=== PATIENT | female | born 1990 | race Caucasian/White ===

== ENCOUNTER 2021-06-03 10:03 | Emergency (ER) | payer OTHER, SELFPAY ==
--- NOTE | 2021-06-03 10:12 | ED.URI ---
HPI - URI/Sore Throat General Chief Complaint: Upper Respiratory Infection Stated Complaint: Bilateral Ear Pain,Sore Throat Time Seen by Provider: 06/03/21 10:12 Source: patient and RN notes reviewed Mode of arrival: ambulatory Limitations: no limitations History of Present Illness HPI Narrative: Ms. Muniz is a 30-year-old female patient here today with complaint of ear pain and sinus pressure started last Thursday. Patient states she had a PCR at [facility] last Thursday which was negative. Patient has used Benadryl and Tylenol Sinus at home with minimal relief. Patient states she has a history of ear infections and sinus issues. Patient denies taking any daily allergy medicine. MD elicited complaint: other (bilateral ear pain) Related Data Allergies Allergy/AdvReac Type Severity Reaction Status Date / Time No Known Allergies Allergy Verified 06/03/21 10:28 Review of Systems Review of Systems: CONSTITUTIONAL: Denies body aches, fever, chills, or sweats. EYES: Denies visual changes, redness, or discharge. ENT: + rhinorrhea, congestion, sore throat, or otalgia. CARDIOVASCULAR: Denies chest pain, palpitations, or edema. RESPIRATORY: + cough , denies dyspnea. GASTROINTESTINAL: Denies abdominal pain, nausea, vomiting, or diarrhea. GENITOURINARY: Denies dysuria or hematuria. SKIN: Denies rash, itching, or wounds. MUSCULOSKELETAL: Denies back pain, joint pain, or myalgia. NEUROLOGIC: Denies headache, numbness, tingling, or weakness. PSYCH: Denies depression or anxiety. PMFSH Comments At time of signature, I have reviewed and agree with nursing past medical, surgical, social and family history unless otherwise noted. Please see nursing chart for further information. There is no relevant family history pertinent to the presenting complaint Exam Narrative: GENERAL: Well-appearing, well-nourished, and in no acute distress. HEAD: Normocephalic, atraumatic. EYES: EOMI. No redness or drainage. Conjunctivae normal. ENT: Mucous membranes pink and moist. Nares , clear rhinorrhea, Right TM dull, fluid filled, bulging. Left TM erythemic, bulging,. Throat: clear post-nasal drainage. Uvula midline; maxillary sinus tenderness with palpation. NECK: Normal AROM. Supple. Left anterior cervical lymphadenopathy. CHEST: No respiratory distress. Clear to auscultation. MUSCULOSKELETAL: No bony tenderness. EXTREMITIES: Normal range of motion. No edema. SKIN: Warm, dry, no rash. Capillary refill normal. Normal skin turgor. NEURO: No focal deficits. Alert and oriented x3. Gait steady. PSYCH: Normal affect. No signs of depression or anxiety. Course Vital Signs Vital signs: Vital Signs Temperature 36.8 C 06/03/21 10:18 Pulse Rate 90 06/03/21 10:18 Respiratory Rate 18 06/03/21 10:18 Blood Pressure 125/86 06/03/21 10:18 Pulse Oximetry 100 06/03/21 10:18 Temperature 36.8 C 06/03/21 10:18 Pulse Rate 90 06/03/21 10:18 Respiratory Rate 18 06/03/21 10:18 Blood Pressure 125/86 06/03/21 10:18 Pulse Oximetry 100 06/03/21 10:18 Reviewed MDM - URI/Sore Throat MDM Narrative Medical decision making narrative: Left tympanic membrane erythematous bulging. Clear postnasal drainage noted. Minimal erythema to throat. Differential Diagnosis Differential diagnosis: Likely upper respiratory infection, otitis media, sinusitis and pharyngitis Medical Records Attestation: I reviewed the patient's medical records. Critical Care Time Critical Care Time Critical Care Time: No Discharge Plan Discharge Clinical Impression: Otitis media Qualifiers: Otitis media type: unspecified Chronicity: acute Qualified Code(s): H66.90 - Otitis media, unspecified, unspecified ear Upper respiratory infection Qualifiers: URI type: unspecified viral URI Qualified Code(s): J06.9 - Acute upper respiratory infection, unspecified Patient Disposition: Home, Self-Care Condition: Stable Instructions: Antibiotic Form
[2021-06-03 10:18] VITALS: BP 125/86; PULSE 90; RESP 18; TEMP 36.8; O2SAT 100
== END 2021-06-03 10:38 | disposition home or self-care (01) ==
PROVIDERS: Emergency Provider Nurse Practitioner Family; PCP Registered Nurse
DX: H66.90 Otitis media, unspecified, unspecified ear (principal); J06.9 Acute upper respiratory infection, unspecified
CPT/HCPCS: 99213; G0463

== ENCOUNTER → 2022-04-19 08:44 | Outpatient (CLI) | payer OTHER, SELFPAY ==
--- NOTE | ~2022-04-19 | MR_ITS ---
EXAMINATION: MR foot LT wo con DATE: 04/19/2022 09:46 INDICATION: One month of pain at the left forefoot. TECHNIQUE: Magnetic resonance imaging (MRI) of the left fore/mid foot was performed without intraveno us contrast. Sequences included sagittal T1-weighted FSE, sagittal fluid sensitive FSE STIR, coronal PD-weighted FS FSE, coronal T1-weighted FSE, axial PD-weighted FS FSE, and axial PD-weighted FSE. COMPARISON: None FINDINGS: Bone alignment is normal. There is prominent marrow edema of the third metatarsal centered at the pro ximal metadiaphyseal region. There is mild periostitis along the medial side of the diaphyseal cortex where there is subtle increased intracortical signal but without a discrete fracture line. Findings would be consistent with a grade 4a stress injury. There was normal marrow signal. No pathologic tee ow replacing process. Mild osteoarthritis with mild partial-thickness cartilage loss at the first met atarsophalangeal and second tarsal metatarsal joints. No joint effusions or other abnormal fluid janet ections. The flexor and extensor tendons are normal. The Lisfranc ligament complex as well as the col lateral ligament complex at the metatarsophalangeal and interphalangeal joints are normal. There is f eathery muscular edema involving the flexor digitorum brevis muscle at the level of the midfoot witho ut discrete tear defect consistent with a low-grade strain. IMPRESSION: 1. Grade for a stress injury without complete fracture at the proximal metadiaphyseal region of the l eft third metatarsal. 2. Low-grade strain of the flexor digitorum brevis muscle. Reviewed, dictated and finalized at location A. IMPRESSION: 1. Grade for a stress injury without complete fracture at the proximal metadiap hyseal region of the left third metatarsal. 2. Low-grade strain of the flexor digitorum brevis muscle.
== END ==
PROVIDERS: PCP Registered Nurse; Visit Provider Podiatrist Foot & Ankle Surgery
DX: S96.812A Strain of other specified muscles and tendons at ankle and foot level, left foot, initial encounter (principal); X58.XXXA Exposure to other specified factors, initial encounter
CPT/HCPCS: 73718

== ENCOUNTER 2022-07-01 12:01 | Emergency (ER) | payer OTHER, SELFPAY ==
[2022-07-01 12:14] VITALS: BP 118/82; PULSE 90; RESP 16; TEMP 36.6; O2SAT 99
--- NOTE | 2022-07-01 12:20 | ED.EAR ---
HPI - Ear Problem General Chief complaint: Ear Stated complaint: bilateral ear pain Source: patient Mode of arrival: ambulatory Limitations: no limitations History of Present Illness HPI Narrative: This is a 31 year old female that was just treated for a ear infection less than a month ago come back in complaining of ear pain in both of her ears and some pain in her Throat. Patient states that she is taking Claritin alternating Zyrtec as well and her ears continue to hurt. Patient states her ear has been hurting for the last week Related Data Allergies Allergy/AdvReac Type Severity Reaction Status Date / Time No Known Allergies Allergy Verified 07/01/22 12:23 Review of Systems Review of Systems: ear pain All systems reviewed & are unremarkable except as noted in HPI and below PMFSH Comments At time as signature, I have reviewed and agree with nursing past medical, social, surgical and family history. Please see nursing chart for further information. There is no relevant family history pertinent to the presenting complaint. Exam Narrative: GENERAL:Well-appearing, well-nourished, and in no acute distress. HEAD:Normocephalic, atraumatic. EYES: PERRLA and EOMI. ENT: Nares clear, mild rhinorrhea Mucous membranes moist.right has bulging tm with fluid noted left has erythema noted CHEST: No respiratory distress. HEART: Regular rate and rhythm Normal peripheral pulses. EXTREMITIES: Normal range of motion. No edema. SKIN: Warm, dry, no rash. NEURO: No focal deficits. Alert and oriented x3. Course Course Level of Care: Express Care Visit Vital Signs Vital signs: Vital Signs Temperature 97.8 F 07/01/22 12:14 Pulse Rate 90 07/01/22 12:14 Respiratory Rate 16 07/01/22 12:14 Blood Pressure 118/82 07/01/22 12:14 Pulse Oximetry 99 07/01/22 12:14 Oxygen Delivery Room Air 07/01/22 12:14 Temperature 97.8 F 07/01/22 12:14 Pulse Rate 90 07/01/22 12:14 Respiratory Rate 16 07/01/22 12:14 Blood Pressure 118/82 07/01/22 12:14 Pulse Oximetry 99 07/01/22 12:14 Oxygen Delivery Room Air 07/01/22 12:14 Medical Decision Making Vital Signs Vital Signs: Vital Signs Temperature 97.8 F 07/01/22 12:14 Pulse Rate 90 07/01/22 12:14 Respiratory Rate 16 07/01/22 12:14 Blood Pressure 118/82 07/01/22 12:14 Pulse Oximetry 99 07/01/22 12:14 Oxygen Delivery Room Air 07/01/22 12:14 Temperature 97.8 F 07/01/22 12:14 Pulse Rate 90 07/01/22 12:14 Respiratory Rate 16 07/01/22 12:14 Blood Pressure 118/82 07/01/22 12:14 Pulse Oximetry 99 07/01/22 12:14 Oxygen Delivery Room Air 07/01/22 12:14 Discharge Plan Discharge Clinical Impression: Otitis media Patient Disposition: Home, Self-Care Condition: Stable Instructions: Antibiotic Form, Ear Infection (ED) Additional Instructions: Please make sure you take all of your medication Make sure you are not getting in water in your ears. Please make sure you are taking antihistamine You need to follow up with your PCP Prescriptions: New azithromycin [Zithromax Z-Aron] 250 mg tablet See Rx Instructions .ROUTE .COMPLEX Qty: 6 0RF Rx Instructions: For 250 mg dose pack: take 500 mg today (day 1), then 250 mg for 4 days (days 2-5) Follow-up/Referrals: [facility] [Primary Care Provider] - Time of Disposition: 12:34
== END 2022-07-01 12:42 | disposition home or self-care (01) ==
PROVIDERS: Emergency Provider Nurse Practitioner Family; PCP Registered Nurse
DX: H66.91 Otitis media, unspecified, right ear (principal)
CPT/HCPCS: 99213; G0463

== ENCOUNTER 2024-08-01 14:42 | Outpatient (CLI) | payer OTHER, SELFPAY ==
--- NOTE | ~2024-08-01 | XR_ITS ---
EXAMINATION: XR chest 2V Exam Date/Time: 08/01/2024 14:59 CHAR FILTER OPERATOR HELPER HISTORY: Melanoma of back Comparison: None. RESULT: Lines, tubes, and devices: None. Lungs and pleura: Clear. Cardiomediastinal silhouette: Normal. Other: No acute osseous or upper abdominal finding. IMPRESSION: No acute cardiopulmonary process. Reviewed, dictated and finalized at location K. FILTER OPERATOR HELPER
== END 2024-08-01 14:43 | disposition home or self-care (01) ==
PROVIDERS: PCP Surgery; Visit Provider Surgery
DX: C43.59 Malignant melanoma of other part of trunk (principal)
CPT/HCPCS: 71046

== ENCOUNTER 2025-01-30 14:52 | Outpatient (CLI) | payer OTHER, SELFPAY ==
--- NOTE | ~2025-01-30 | XR_ITS ---
EXAMINATION: XR chest 2V Exam Date/Time: 01/30/2025 14:58 CDT HISTORY: Melanoma of back Comparison: 08/01/2024. RESULT: Lines, tubes, and devices: None. Lungs and pleura: Clear. Cardiomediastinal silhouette: Stable. Other: No acute osseous or upper abdominal finding. IMPRESSION: No acute cardiopulmonary process. Reviewed, dictated and finalized at location K.
== END 2025-01-30 14:53 | disposition home or self-care (01) ==
LOC: MICIMG 14:54
PROVIDERS: PCP Surgery; Visit Provider Surgery
DX: C43.59 Malignant melanoma of other part of trunk (principal)
CPT/HCPCS: 71046

== ENCOUNTER 2025-07-31 14:55 | Outpatient (CLI) | payer OTHER, SELFPAY ==
--- NOTE | ~2025-07-31 | XR_ITS ---
EXAMINATION: XR chest 2V, 07/31/2025 15:08 UPPER LINING CEMENTER HISTORY: melanoma of back COMPARISON: No comparisons available. Technique: 2 views obtained. Findings: The lungs are clear, no effusion. No pneumothorax. Heart is normal size. Mediastinal and hilar contours are within normal limits. Bony thorax no acute abnormality. Impression: No acute cardiopulmonary abnormality. Reviewed, dictated and finalized at location P. R LINING CEMENTER Impression: No acute cardiopulmonary abnormality.
== END 2025-07-31 14:56 | disposition home or self-care (01) ==
LOC: MICIMG 14:56
PROVIDERS: PCP Surgery; Visit Provider Surgery
DX: C43.59 Malignant melanoma of other part of trunk (principal)
CPT/HCPCS: 71046